=== PATIENT | male | born 1965 | race Asian ===

== ENCOUNTER 2017-10-15 07:58 | Emergency (ER) | payer OTHER ==
[~2017-10-15] VITALS: Ht 177.8 cm; Wt 68.0 kg
[2017-10-15 08:22] VITALS: BP 157/95
[2017-10-15 08:29] LABS: Basophils # (auto) 0.1 uL; Eosinophils # (auto) 0 uL; Lymphocytes % (auto) 30.3 % (10.0-50.0); Mean Corpuscular Hemoglobin 21.6 pg (28.0-32.0); Mean Corpuscular Hgb Conc. 31.5 g/dL (32.0-36.0); Monocytes # (auto) 0.4 uL; Neutrophils # (auto) 4.1 uL
[2017-10-15 08:30] LABS: Basophils % (auto) 0.8 % (0.0-2.0); Eosinophils % (auto) 0.7 % (0.0-7.0); Hematocrit 47.4 % (41.0-53.0); Hemoglobin 14.9 g/dL (13.5-17.5); Mean Corpuscular Volume 68.4 fL (80.0-100.0); Monocytes % (auto) 5.9 % (0.0-12.0); Neutrophils % (auto) 62.3 % (37.0-80.0); Nucleated Red Blood Cells % 0.1 %; Platelet Count (auto) 254 10^3/uL (140-450); Red Blood Cells 6.93 10^6/uL (4.5-5.90); Red Cell Distribution Width 15.4 % (11.8-14.3); White Blood Cell 6.5 10^3/uL (4.4-10.8)
[2017-10-15 08:40] LABS: Urine Bacteria NONE SEEN /hpf (None Seen); Urine Blood Negative /uL (Negative); Urine Specific Gravity 1.006 (1.001-1.035); Urine WBC <1 /hpf (0 - 3)
[2017-10-15] MEDS ORDERED: LORazepam 2MG/ML-1ML VIAL IV ONE (09:30)
[2017-10-15] MEDS ORDERED: cloNIDine HCL 0.1 MG TAB ONE (10:37)
[2017-10-15] MEDS ORDERED: cloNIDine HCL 0.1 MG TAB PO ONE (10:45)
== END 2017-10-15 11:06 | disposition home or self-care (01) ==
LOC: ER 08:03
DX: F41.9 Anxiety disorder, unspecified (principal)
CPT/HCPCS: 36415; 71045; 81001; 84484; 85025; 93005; 96374; 99285; J2060